=== PATIENT | female | born 1960 | race Caucasian/White ===

== ENCOUNTER → 2017-09-11 | Outpatient (CLI) | payer OTHER, BC ==
--- NOTE | 2017-09-12 10:05 | MM ---
Reason for exam: screening (asymptomatic). Last mammogram was performed 1 year and 10 months ago. History: Patient is postmenopausal and had first child at age 30. Family history of breast cancer in maternal grandmother and breast cancer in mother at age 55. 2 benign excisional biopsies of the right breast. Physical Findings: A clinical breast exam by your physician is recommended on an annual basis and results should be correlated with mammographic findings. MG 3D Screening Mammo W/Cad Bilateral CC and MLO view(s) were taken. Prior study comparison: November 02, 2015, bilateral MG screening mammo w CAD. September 23, 2014, bilateral MG screening mammo w CAD. The breast tissue is heterogeneously dense. This may lower the sensitivity of mammography. Finding: There is a 11 mm equal density (isodense), obscured oval mass in the upper outer quadrant of the left breast. ASSESSMENT: Incomplete: need additional imaging evaluation, BI-RAD 0 RECOMMENDATION: Ultrasound of the left breast. [facility] will attempt to contact patient to return for ultrasound.
== END | disposition home or self-care (01) ==
LOC: RADMAMWWP 16:45
PROVIDERS: ATTEND General Practice
DX: Z12.31 Encounter for screening mammogram for malignant neoplasm of breast (principal)
CPT/HCPCS: 77063; G0202

== ENCOUNTER → 2018-04-16 | Outpatient (CLI) | payer OTHER, BC ==
--- NOTE | 2018-04-17 09:25 | USB ---
Reason for exam: clinical finding. History: Patient is postmenopausal and had first child at age 30. Family history of breast cancer in maternal grandmother and breast cancer in mother at age 55. 2 benign excisional biopsies of the right breast. Physical Findings: Nurse did not find any significant physical abnormalities on exam. US Breast LT Left complete breast ultrasound includes all four quadrants, the retroareolar region and axilla. Finding demonstrates no cystic or solid lesion seen. Duct ectasia at the nipple. These results were verbally communicated with the patient and result sheet given to the patient on 04/16/18. ASSESSMENT: Negative, BI-RAD 1 RECOMMENDATION: Return to routine screening mammogram schedule for both breasts. Back on schedule.
== END | disposition home or self-care (01) ==
LOC: RADUSWWP 15:34
PROVIDERS: ATTEND Family Medicine
DX: R92.8 Other abnormal and inconclusive findings on diagnostic imaging of breast (principal)

== ENCOUNTER → 2019-05-26 | Outpatient (CLI) | payer OTHER, BC ==
--- NOTE | 2019-05-27 13:51 | MM ---
Reason for exam: screening (asymptomatic). Last mammogram was performed 1 year and 8 months ago. History: Patient is postmenopausal and had first child at age 30. Family history of breast cancer in maternal grandmother and breast cancer in mother at age 55. 2 benign excisional biopsies of the right breast. Physical Findings: A clinical breast exam by your physician is recommended on an annual basis and results should be correlated with mammographic findings. MG 3D Screening Mammo W/Cad Bilateral CC and MLO view(s) were taken. Prior study comparison: September 11, 2017, bilateral MG 3d screening mammo w/cad. November 02, 2015, bilateral MG screening mammo w CAD. The breast tissue is heterogeneously dense. This may lower the sensitivity of mammography. There are benign appearing round oval circumscribed left areolar masses waxing and waning in size over priors most characteristic of cysts. No suspicious abnormality. Post surgical change on the right. No significant changes when compared with prior studies. ASSESSMENT: Benign, BI-RAD 2 RECOMMENDATION: Routine screening mammogram of both breasts in 1 year.
== END | disposition home or self-care (01) ==
LOC: RADMAMWWP 16:30
PROVIDERS: ATTEND Family Medicine
DX: Z12.31 Encounter for screening mammogram for malignant neoplasm of breast (principal)
CPT/HCPCS: 77063; 77067

== ENCOUNTER → 2020-07-31 | Outpatient (CLI) | payer OTHER, BC ==
--- NOTE | 2020-08-01 13:30 | MM ---
Reason for exam: screening (asymptomatic). Last mammogram was performed 1 year and 2 months ago. History: Patient is postmenopausal and had first child at age 30. Family history of breast cancer in maternal grandmother and breast cancer in mother at age 55. 2 benign excisional biopsies of the right breast. Physical Findings: A clinical breast exam by your physician is recommended on an annual basis and results should be correlated with mammographic findings. MG 3D Screening Mammo W/Cad Bilateral CC and MLO view(s) were taken. Prior study comparison: May 26, 2019, bilateral MG 3d screening mammo w/cad. September 11, 2017, bilateral MG 3d screening mammo w/cad. The breast tissue is heterogeneously dense. This may lower the sensitivity of mammography. There is no discrete abnormality. ASSESSMENT: Negative, BI-RAD 1 RECOMMENDATION: Routine screening mammogram of both breasts in 1 year.
== END | disposition home or self-care (01) ==
LOC: RADMAMWWP 15:35
PROVIDERS: ATTEND General Practice
DX: Z12.31 Encounter for screening mammogram for malignant neoplasm of breast (principal)
CPT/HCPCS: 77063; 77067

== ENCOUNTER → 2021-09-14 | Outpatient (CLI) | payer BC ==
--- NOTE | 2021-09-18 13:33 | MM ---
Reason for exam: screening (asymptomatic). Last mammogram was performed 1 year and 1 month ago. History: Patient is postmenopausal and had first child at age 30. Family history of breast cancer in maternal grandmother and breast cancer in mother at age 55. 2 benign excisional biopsies of the right breast. Physical Findings: A clinical breast exam by your physician is recommended on an annual basis and results should be correlated with mammographic findings. MG 3D Screening Mammo W/Cad Bilateral CC and MLO view(s) were taken. Prior study comparison: July 31, 2020, bilateral MG 3d screening mammo w/cad. May 26, 2019, bilateral MG 3d screening mammo w/cad. The breast tissue is heterogeneously dense. This may lower the sensitivity of mammography. There is chronic nodularity in the left breast. No significant changes when compared with prior studies. ASSESSMENT: Benign, BI-RAD 2 RECOMMENDATION: Routine screening mammogram of both breasts in 1 year. Patient should continue monthly self breast exams. A negative report should not preclude additional follow up of suspicious palpable abnormalities.
== END | disposition home or self-care (01) ==
LOC: RADMAMWWP 13:02
PROVIDERS: ATTEND General Practice
DX: Z12.31 Encounter for screening mammogram for malignant neoplasm of breast (principal); Z80.3 Family history of malignant neoplasm of breast; Z78.0 Asymptomatic menopausal state
CPT/HCPCS: 77063; 77067

== ENCOUNTER → 2022-10-08 | Outpatient (CLI) | payer BC ==
--- NOTE | 2022-10-11 12:29 | MM ---
Reason for Exam: Screening (asymptomatic). Last mammogram was performed 1 year(s) and 1 month(s) ago. Patient History: Menarche at age 11. First Full-Term at age 30. Late child-bearing (after 30). Postmenopausal. Benign Excisional Biopsy on the right side. Benign Excisional Biopsy on the right side. Maternal grandmother had breast cancer. Mother had breast cancer, age 55. Risk Values: Tania 5 year model risk: 4.9%. NCI Lifetime model risk: 18.4%. Prior Study Comparison: 05/26/2019 Bilateral Screening Mammogram, [facility]. 07/31/2020 Bilateral Screening Mammogram, [facility]. 09/14/2021 Bilateral Screening Mammogram, [facility]. Tissue Density: The breast tissue is heterogeneously dense. This may lower the sensitivity of mammography. Findings: Analyzed By CAD. There is circumscribed round 5 mm mass in the anterior left breast subareolar region inferior medial aspect that is stable from most recent mammogram. No suspicious new group of microcalcifications or concerning new mass in either breast. Overall Assessment: Benign, BI-RAD 2 Management: Screening Mammogram of both breasts in 1 year. A clinical breast exam by your physician is recommended on an annual basis and results should be correlated with mammographic findings. Electronically signed and approved by: Dimitri Hirsch M.D.
== END | disposition home or self-care (01) ==
LOC: RADMAMWWP 14:33
PROVIDERS: ATTEND Family Medicine
DX: Z12.31 Encounter for screening mammogram for malignant neoplasm of breast (principal); Z78.0 Asymptomatic menopausal state; Z80.3 Family history of malignant neoplasm of breast; Z98.890 Other specified postprocedural states
CPT/HCPCS: 77063; 77067

== ENCOUNTER → 2023-11-20 | Outpatient (CLI) | payer BC ==
--- NOTE | 2023-11-21 19:10 | MM ---
Reason for Exam: Screening (asymptomatic). Last mammogram was performed 1 year(s) and 1 month(s) ago. Patient History: Menarche at age 11. First Full-Term at age 30. Late child-bearing (after 30). Postmenopausal. Benign Excisional Biopsy on the right side. Benign Excisional Biopsy on the right side. Maternal grandmother had breast cancer. Mother had breast cancer, age 55. Risk Values: Tania 5 year model risk: 5.0%. NCI Lifetime model risk: 17.8%. Prior Study Comparison: 07/31/2020 Bilateral Screening Mammogram, [facility]. 09/14/2021 Bilateral Screening Mammogram, [facility]. 10/08/2022 Bilateral MG 3D screening mammo w/cad, [facility]. Tissue Density: The breast tissue is heterogeneously dense. This may lower the sensitivity of mammography. Findings: Analyzed By CAD. Increasing nodularity anterior right lower inner quadrant for which further evaluation is recommended. Other areas of asymmetric density remain unchanged. There is no suspicious group of microcalcifications or new suspicious mass in either breast. Overall Assessment: Incomplete: need additional imaging evaluation, BI-RAD 0 Management: Special View Mammogram of the right breast. Diagnostic Breast Ultrasound of the right breast. . [facility] will attempt to contact patient to return for supplemental views and ultrasound if indicated. Patient should continue monthly self-breast exams. A clinical breast exam by your physician is recommended on an annual basis. This exam should not preclude additional follow-up of suspicious palpable abnormalities. Note on Tania scores and lifetime risk: 1. A Tania score greater than 3% is considered moderate risk. If this is the case, consider specialist referral to assess eligibility for a risk reducing agent. 2. If overall lifetime risk for the development of breast cancer is 20% or higher, the patient may qualify for future screening with alternating mammogram and breast MRI. Electronically signed and approved by: Wesley Hernandez M.D. Radiologist
== END | disposition home or self-care (01) ==
LOC: RADMAMWWP 10:54
PROVIDERS: ATTEND Family Medicine
DX: Z12.31 Encounter for screening mammogram for malignant neoplasm of breast (principal); Z80.3 Family history of malignant neoplasm of breast; Z78.0 Asymptomatic menopausal state
CPT/HCPCS: 77063; 77067

== ENCOUNTER → 2023-11-28 | Outpatient (CLI) | payer BC ==
--- NOTE | 2023-11-28 13:14 | MM ---
Reason for Exam: Additional evaluation requested from abnormal screening. Last screening mammogram was performed less than 1 month ago. Patient History: Menarche at age 11. First Full-Term at age 30. Late child-bearing (after 30). Postmenopausal. Benign Excisional Biopsy on the right side. Benign Excisional Biopsy on the right side. Maternal grandmother had breast cancer. Mother had breast cancer, age 55. Risk Values: Tania 5 year model risk: 5.0%. NCI Lifetime model risk: 17.8%. Prior Study Comparison: 07/31/2020 Bilateral Screening Mammogram, [facility]. 09/14/2021 Bilateral Screening Mammogram, [facility]. 10/08/2022 Bilateral MG 3D screening mammo w/cad, [facility]. 11/20/2023 Bilateral MG 3D screening mammo w/cad, [facility]. Tissue Density: Right: The breast tissue is heterogeneously dense. This may lower the sensitivity of mammography. Findings: Analyzed By CAD. 7 mm nodule right 5:00 position approximately 2 cm. Ultrasound is recommended. Overall Assessment: Incomplete: need additional imaging evaluation, BI-RAD 0 Management: Diagnostic Breast Ultrasound of the right breast. . Results were given to the patient verbally at the time of exam. Patient should continue monthly self-breast exams. A clinical breast exam by your physician is recommended on an annual basis. This exam should not preclude additional follow-up of suspicious palpable abnormalities. Note on Tania scores and lifetime risk: 1. A Tania score greater than 3% is considered moderate risk. If this is the case, consider specialist referral to assess eligibility for a risk reducing agent. 2. If overall lifetime risk for the development of breast cancer is 20% or higher, the patient may qualify for future screening with alternating mammogram and breast MRI. Electronically signed and approved by: Mateo Orr M.D. Radiologis
--- NOTE | 2023-11-28 13:36 | USB ---
Reason for Exam: Additional evaluation requested from abnormal screening. Patient History: Menarche at age 11. First Full-Term at age 30. Late child-bearing (after 30). Postmenopausal. Benign Excisional Biopsy on the right side. Benign Excisional Biopsy on the right side. Maternal grandmother had breast cancer. Mother had breast cancer, age 55. Risk Values: Tania 5 year model risk: 5.0%. NCI Lifetime model risk: 17.8%. Technique: Method: Targeted. Prior Study Comparison: 09/14/2021 Bilateral Screening Mammogram, [facility]. 10/08/2022 Bilateral MG 3D screening mammo w/cad, [facility]. 11/20/2023 Bilateral MG 3D screening mammo w/cad, [facility]. Findings: The lower section of the breast of the right breast, the axilla of the right breast and the retroareolar of the right breast were scanned. Solid mass noted at the right 5:00 position 2 cm from the nipple measuring 7 x 6 mm. Tissue diagnosis recommended. There are a few mildly prominent ducts noted. No additional lesions evident.. Overall Assessment: Suspicious, BI-RAD 4 Management: Ultrasound Core Biopsy of the right breast. A clinical breast exam by your physician is recommended on an annual basis and results should be correlated with mammographic findings. This exam should not preclude additional follow-up of suspicious palpable abnormalities. Results were given to the patient verbally at the time of exam. Electronically signed and approved by: Mateo Orr M.D. Radiologis
== END | disposition home or self-care (01) ==
LOC: RADMAMWWP 12:53
PROVIDERS: ATTEND Family Medicine
DX: R92.331 Mammographic heterogeneous density, right breast (principal); Z80.3 Family history of malignant neoplasm of breast
CPT/HCPCS: 77061; 77065

== ENCOUNTER → 2023-12-22 | Day surgery (SDC) | payer BC | LOC: RADUSWWP 12:44 | PROVIDERS: ATTEND Family Medicine | DX: D24.1 Benign neoplasm of right breast (principal) | CPT/HCPCS: 77065; 19083; A4648; 88305; 88341; 88342 ==

== ENCOUNTER → 2024-02-05 | Outpatient (CLI) | payer BC ==
--- NOTE | 2024-02-05 15:25 | P.GSCN ---
History of Present Illness Consult date: 02/05/24 Reason for Consult: atypical intraductal papilloma right breast Requesting physician: Nhan Lane History of present illness: Wilma is a 63 year old female seen in consultation for Dr. Lane regarding a right breast biopsy of an atypical intraductal papilloma. She had a bilateral mammogram on 11-20-23 which led to a right breat ultrasound on 11-28-23. This led to a right breast ultrasound guided core biopsy on 12-22-23. No lesions of concern were noted in the left breast. The patient does not feel any lumps masses or nodules of concern in either breast. She tolerated the breast biopsy without difficulty. She is not complaining of any nipple discharge or skin changes. She has not had any recent trauma or infection in the breast. She has had right breast biopsies in the remote past which were benign. Caffeine: 2 cups/day Nicotine: Negative Chocolate: Occasional BCP: used for 5 years hormones: none Family History: mother: breast cancer father: cancer in neck Hormonal History: menarche: 11 , breast fed: yes, age at first : 30 menopause: 50 Surgical HIstory: 2 C sections right breast biopsy ovarian cyst removed Medical History: high cholesterol Social History: nicotine: none alcohol: none drugs: none Review of Systems - Constitutional Denies fever, Denies weight loss - EENT Eyes: denies blurred vision Ears: deny: decreased hearing, tinnitus Ears, nose, mouth and throat: Denies dysphagia - Breasts bilateral: as per HPI - Cardiovascular Denies chest pain, Denies shortness of breath - Respiratory Denies cough, Denies 7 - Gastrointestinal Reports as per HPI - Genitourinary Genitourinary: Denies dysuria, Denies hematuria Menstruation: Reports postmenopausal - Musculoskeletal Reports as per HPI - Integumentary Denies rash, Denies unusual bruising - Neurological Denies headaches, Denies syncope - Psychiatric Reports as per HPI - Endocrine Reports as per HPI - Hematologic/Lymphatic Denies easy bleeding, Denies easy bruising - Allergic/Immunologic Reports as per HPI Past Medical History Past Medical History: Hyperlipidemia History of Any Multi-Drug Resistant Organisms: None Reported Past Surgical History: Section Additional Past Surgical History / Comment(s): X2, PREVIOUS BREAST BX Past Anesthesia/Blood Transfusion Reactions: No Reported Reaction - Sexual Orientation/Gender Identity What was your sex assigned at ?: Female Preferred Pronoun: She/Her/Hers Past Psychological History: No Psychological Hx Reported Smoking Status: Former smoker Past Alcohol Use History: None Reported Past Drug Use History: None Reported - Past Family History Mother Family Medical History: Cancer Additional Family Medical History / Comment(s): PT STATES MOTHER DUE TO BREAST CA Father Additional Family Medical History / Comment(s): PT STATES FATHER FROM HEART DISEASE Medications and Allergies Home Medications Medication Instructions Recorded Confirmed Type Atorvastatin [Lipitor] 10 mg PO DAILY 12/01/23 12/01/23 History Surgical - Exam - General no distress - Eyes normal ocular movement - ENT no hearing loss - Neck trachea midline - Respiratory normal respiratory effort, clear to auscultation - Cardiovascular Rhythm: regular Heart Sounds: normal: S1, S2 - Abdomen Abdomen: soft, non tender, no guarding, no rigid, no rebound - Integumentary normal turgor - Neurologic no disoriented, no combative - Musculoskeletal normal gait - Psychiatric oriented to time, oriented to person, oriented to place, speech is normal, memory intact Breast Exam: BRA: 34C Inspection: Bilateral grade 2 ptosis Palpation: Right breast: Multi positional exam fibrocystic changes no dominant masses or nodules of concern, biopsy site clean and dry Right axilla: No adenopathy of concern Left breast: Multi positional exam fibrocystic changes no dominant masses or nodules of concern Left axilla: No adenopathy of concern Results Mammogram and ultrasound personally reviewed with Dr. Sainz Assessment and Plan Assessment: Impression: Atypical intraductal papilloma right breast Fibrocystic breast changes Plan: Needle localization excisional lumpectomy atypical intraductal papilloma right breast, possible oncoplastic tissue transfer The area of the clip appears to have migrated slightly and after review with radiology it was recommended that ultrasound localization be performed rather than localization of the clip Risk and benefits of the procedure discussed with the patient. Risk include but are not limited to bleeding, infection, reaction to the anesthetic. If the needle were to slip it is possible that the lesion of concern would not be adequately removed and further tissue acquisition may be necessary. She understands and wishes to proceed. CC: DR. Lane
[2024-02-05 15:43] VITALS: BP 156/89; PULSE 69; RESP 17; TEMP 98
== END ==
LOC: WWCWWP 14:46
PROVIDERS: ATTEND Surgery
DX: R92.8 Other abnormal and inconclusive findings on diagnostic imaging of breast (principal); N60.11 Diffuse cystic mastopathy of right breast; N60.12 Diffuse cystic mastopathy of left breast; D24.1 Benign neoplasm of right breast; Z80.3 Family history of malignant neoplasm of breast; Z87.891 Personal history of nicotine dependence

== ENCOUNTER → 2024-03-11 | Outpatient (CLI) | payer BC ==
--- NOTE | 2024-03-11 14:43 | P.BCPN ---
Subjective Progress Note Date: 03/11/24 Principal diagnosis: atypical intraductal papilloma 03-11-24 Reason for Consult: atypical intraductal papilloma right breast Requesting physician: Nhan Lane History of present illness: Wilma is a 63 year old female seen in consultation for Dr. Nhan Lane regarding a right breast biopsy of an atypical intraductal papilloma. She had a bilateral mammogram on 11-20-23 which led to a right breast ultrasound on 11-28-23. This led to a right breast ultrasound guided core biopsy on 12-22-23. No lesions of concern were noted in the left breast. The patient did not feel any lumps masses or nodules of concern in either breast. She tolerated the breast biopsy without difficulty. She was not complaining of any nipple discharge or skin changes. She had not had any recent trauma or infection in the breast. She has had right breast biopsies in the remote past which were benign. Caffeine: 2 cups/day Nicotine: Negative Chocolate: Occasional BCP: used for 5 years hormones: none Family History: mother: breast cancer father: cancer in neck Hormonal History: menarche: 11 , breast fed: yes, age at first : 30 menopause: 50 Surgical HIstory: 2 C sections right breast biopsy ovarian cyst removed Medical History: high cholesterol Social History: nicotine: none alcohol: none drugs: none Review of Systems - Constitutional Denies fever, Denies weight loss - EENT Eyes: denies blurred vision Ears: deny: decreased hearing, tinnitus Ears, nose, mouth and throat: Denies dysphagia - Breasts bilateral: as per HPI - Cardiovascular Denies chest pain, Denies shortness of breath - Respiratory Denies cough - Gastrointestinal Reports as per HPI - Genitourinary Genitourinary: Denies dysuria, Denies hematuria Menstruation: Reports postmenopausal - Musculoskeletal Reports as per HPI - Integumentary Denies rash, Denies unusual bruising - Neurological Denies headaches, Denies syncope - Psychiatric Reports as per HPI - Endocrine Reports as per HPI - Hematologic/Lymphatic Denies easy bleeding, Denies easy bruising - Allergic/Immunologic Reports as per HPI Past Medical History Past Medical History: Hyperlipidemia History of Any Multi-Drug Resistant Organisms: None Reported Past Surgical History: Section Additional Past Surgical History / Comment(s): X2, PREVIOUS BREAST BX Past Anesthesia/Blood Transfusion Reactions: No Reported Reaction - Sexual Orientation/Gender Identity What was your sex assigned at ?: Female Preferred Pronoun: She/Her/Hers Past Psychological History: No Psychological Hx Reported Smoking Status: Former smoker Past Alcohol Use History: None Reported Past Drug Use History: None Reported - Past Family History Mother Family Medical History: Cancer Additional Family Medical History / Comment(s): PT STATES MOTHER DUE TO BREAST CA Father Additional Family Medical History / Comment(s): PT STATES FATHER FROM HEART DISEASE Medications and Allergies Home Medications Medication Instructions Recorded Confirmed Type Atorvastatin [Lipitor] 10 mg PO DAILY 12/01/23 12/01/23 History Objective - Vital Signs Vital Signs: Vital Signs Temp 98.3 F 03/11/24 14:24 Pulse 78 03/11/24 14:24 Resp 16 03/11/24 14:24 BP 158/96 03/11/24 14:24 Pulse Ox 98 03/11/24 14:24 FiO2 Intake & Output 03/10/24 03/11/24 03/11/24 18:59 06:59 18:59 Weight 50.802 kg - Constitutional General appearance: Present: cooperative - EENT Eyes: Present: EOMI ENT: Present: hearing grossly normal - Neck Neck: Present: normal ROM - Respiratory Respiratory: bilateral: CTA - Cardiovascular Rhythm: regular Heart sounds: normal: S1, S2 - Integumentary Integumentary: Present: normal turgor - Musculoskeletal Musculoskeletal: Present: gait normal - Psychiatric Psychiatric: Present: A&O x's 3, appropriate affect, intact judgment & insight - Additional findings Additional findings: Breast Exam: BRA: 34C Inspection: Bilateral grade 2 ptosis Palpation: Right breast: Multi positional exam fibrocystic changes no dominant masses or nodules of concern Right axilla: No adenopathy of concern Left breast: Multi positional exam fibrocystic changes no dominant masses or nodules of concern Left axilla: No adenopathy of concern Assessment and Plan Plan: Impression: Atypical intraductal papilloma right breast Fibrocystic breast changes Plan: Needle localization excisional lumpectomy atypical intraductal papilloma right breast, possible oncoplastic tissue transfer The area of the clip appears to have migrated slightly and after review with radiology it was recommended that ultrasound localization be performed rather than localization of the clip Risk and benefits of the procedure discussed with the patient. Risk include but are not limited to bleeding, infection, reaction to the anesthetic. If the needle were to slip it is possible that the lesion of concern would not be adequately removed and further tissue acquisition may be necessary. She understands and wishes to proceed. CC: DR. Nhan Lane Prep Education Provided - Preoperative Education Given Pre-Op Kit Given Date: 03/11/24 - Functional Assessment Performed?: Yes (arm abduction test passed) - Smoking Cessation Education Provided?: No (nonsmoker)
[2024-03-11 15:06] VITALS: BP 158/96; PULSE 78; RESP 16; TEMP 98.3
== END ==
LOC: WWCWWP 14:14
PROVIDERS: ATTEND Surgery
DX: D24.1 Benign neoplasm of right breast (principal); N60.11 Diffuse cystic mastopathy of right breast

== ENCOUNTER 2024-03-16 08:15 | Day surgery (SDC) | payer BC ==
[~2024-03-16 08:15] MED LIST: HYDROmorphone 0.5 MG/0.5 ML SYRINGE IVP PRN; LIDOCAINE 1% (10MG/ML) FOR IV START INTRADERMA PRN; MIDAZOLAM 2 MG/2 ML VIAL IV PRN
[2024-03-16] MEDS: LACTATED RINGERS 1,000 ML IV SCH (09:10)
[2024-03-16] MEDS ORDERED: ALPRAZolam 0.25 MG TAB ONE (09:10)
[2024-03-16] MEDS: ACETAMINOPHEN TAB 500 MG TAB PO PRN (09:12)
[2024-03-16] MEDS: ALPRAZolam 0.25 MG TAB PO ONE (09:12)
[2024-03-16] MEDS: ONDANSETRON 4 MG/2 ML VIAL IVP ONE (09:12)
[2024-03-16] MEDS: DEXAMETHASONE SOD PHOSPHATE 4 MG/ML 1 ML VIAL IV ONE (09:12)
[2024-03-16 09:43] VITALS: RESP 16
[2024-03-16] MEDS: LIDOCAINE 1% INJ 10MG/ML (20 ML MDV) SQ ONE ×2 (10:03→12:37)
[2024-03-16] MEDS: HEPARIN SODIUM,PORCINE 5,000 UNIT/ML 1 ML VIAL SQ PRN (10:33)
[2024-03-16] MEDS ORDERED: PHENYLEPHRINE 10 MG/ML VIAL ONE (12:04)
[2024-03-16] MEDS ORDERED: LIDOCAINE 1% INJ 10MG/ML (20 ML MDV) ONE (12:04)
[2024-03-16] MEDS ORDERED: fentaNYL (PF) 50 MCG/ML 2 ML AMP ONE (12:04)
[2024-03-16] MEDS ORDERED: MIDAZOLAM 2 MG/2 ML VIAL ONE (12:04)
[2024-03-16] MEDS ORDERED: PROPOFOL 10 MG/ML 20 ML VIAL IV ONE (12:04)
[2024-03-16] MEDS: LACTATED RINGERS 1,000 ML IV ONE (13:06)
--- NOTE | 2024-03-16 13:11 | P.BCAON ---
Date of Procedure: 03/16/24 Preoperative Diagnosis: Intraductal papilloma with atypia Postoperative Diagnosis: Same Procedure(s) Performed: Right breast needle localization lumpectomy, oncoplastic tissue transfer 15 cm Anesthesia: DIXONA Surgeon: Noemi Almonte IV fluids (ml): 600 Pathology: other (Breast tissue) Condition: stable Disposition: same day Indications for Procedure: Intraductal papilloma with atypia Operative Findings: Fibrofatty breast tissue Description of Procedure: The patient was seen in the radiology department for needle localization of the area of concern was performed. The patient was then brought to the operative suite. Following induction of anesthesia the right breast was prepped and draped in a sterile fashion. An infra areolar incision was made and carried down to the area of the shaft of the needle. Surrounding tissue was excised. The specimen was approximately 4 x 2 cm in size. The specimen was painted for orientation. Radiograph revealed that the area of concern and clip were removed. Following this a superior pillar was formed which was 3 x 1 cm. An inferior pillar was formed which was 4 x 1 cm. The wound was well irrigated. After assuring that hemostasis was attained titanium clips were placed. Surgicel in powder form was placed. The superior and inferior pillars were brought together using 3-0 Vicryl suture. Total oncoplastic tissue transfer 15 cm. Following this the subcutaneous tissue was closed using 3-0 Vicryl suture. This was followed by closure of the skin with 4-0 Monocryl. The patient tolerated the procedure in stable condition. All instrument and sponge counts were correct at the end of the case. 10 cc of 1% lidocaine were used to anesthetize the incision. Surgical glue was placed on the incision.
[2024-03-16 14:26] VITALS: TEMP 97
[2024-03-16 15:23] VITALS: BP 147/74; PULSE 55
== END 2024-03-16 15:16 | disposition home or self-care (01) ==
LOC: OR 08:15
PROVIDERS: ATTEND Surgery
DX: N60.21 Fibroadenosis of right breast (principal); E78.5 Hyperlipidemia, unspecified; Z98.891 History of uterine scar from previous surgery; Z87.891 Personal history of nicotine dependence; Z79.899 Other long term (current) drug therapy
CPT/HCPCS: 88307; 77065; 76098; 19285; 14301; C1819; J2250; J1644; J1100; J0690; J2405; J2001; J3010; J2704; J2371

== ENCOUNTER → 2024-03-19 | Outpatient (CLI) | payer BC ==
--- NOTE | 2024-03-19 10:52 | P.BCPO ---
Progress Note - Text Progress Note Date: 03/19/24 Wilma is status post resection of intraductal papilloma right breast. Pathology did reveal intraductal papilloma with atypia. Several of the margins were positive. The patient tolerated the procedure without difficulty. We have discussed chemoprophylaxis secondary to the atypia. At this time the patient has declined. Examination: Incision: Clean and dry mild ecchymosis at incision site Impression: Patient doing well postoperatively Plan: Close surveillance/ + margins Patient will follow-up in 2 weeks Patient will follow-up for right breast mammogram in 6 months with examination Patient declined appointment with medical oncology for possible chemoprophylaxis CC: Dr. Nhan Lane
[2024-03-19 11:02] VITALS: BP 181/90; PULSE 70; RESP 17; TEMP 98.1
== END ==
LOC: WWCWWP 09:43
PROVIDERS: ATTEND Surgery
DX: D24.1 Benign neoplasm of right breast (principal); Z98.890 Other specified postprocedural states

== ENCOUNTER → 2024-04-08 | Outpatient (CLI) | payer BC ==
--- NOTE | 2024-04-08 10:13 | P.CON ---
Consult Note - . Consult date: 04/08/24 Assessment/Plan:: 03/19/24 Wilma is status post resection of intraductal papilloma right breast. Pathology did reveal intraductal papilloma with atypia. Several of the margins were positive. The patient tolerated the procedure without difficulty. We have discussed chemoprophylaxis secondary to the atypia. At this time the patient has declined. Examination: Incision: Clean and dry mild ecchymosis at incision site resolved Impression: Patient doing well postoperatively Plan: Close surveillance/ + margins Patient will follow-up in 6 months Patient will follow-up for right breast mammogram in 6 months with examination Patient declined appointment with medical oncology for possible chemoprophylaxis CC: Dr. Nhan Lane Additional CC's: Nhan Lane
== END ==
LOC: WWCWWP 09:13
PROVIDERS: ATTEND Surgery
DX: D24.1 Benign neoplasm of right breast (principal)

== ENCOUNTER → 2024-09-17 | Outpatient (CLI) | payer BC ==
[2024-09-17 14:23] VITALS: BP 147/87; PULSE 59; RESP 17; TEMP 97.9
== END ==
LOC: WWCWWP 13:14
PROVIDERS: ATTEND Surgery
DX: R92.8 Other abnormal and inconclusive findings on diagnostic imaging of breast (principal)

== ENCOUNTER → 2024-09-17 | Outpatient (CLI) | payer BC ==
--- NOTE | 2024-09-17 13:46 | MM ---
Reason for Exam: Follow-up at short interval from prior study. Last screening mammogram was performed 10 month(s) ago. Patient History: Menarche at age 11. First Full-Term at age 30. Late child-bearing (after 30). Postmenopausal. Previous Hyperplasia w/o Atypia at age 63. 03/16/2024, Lumpectomy on the Right side. 03/16/2024, Benign US breast localization RT on the right side. 12/22/2023, High risk US biopsy breast VAD RT on the right side. Benign Excisional Biopsy on the right side. Benign Excisional Biopsy on the right side. Maternal grandmother had breast cancer. Mother had breast cancer, age 55. Risk Values: Tania 5 year model risk: 5.1%. NCI Lifetime model risk: 17.2%. Prior Study Comparison: 11/28/2023 Right MG 3D work up w/cad RT, [facility]. 12/22/2023 Right MG diagnostic mammo RT wo CAD, [facility]. 03/16/2024 Right MG diagnostic mammo RT wo CAD, [facility]. Tissue Density: Right: The breasts are heterogeneously dense, which may obscure small masses. Findings: Analyzed By CAD. Status postoperative lumpectomy changes right breast. No evidence for recurrent mass or nodule. No suspicious microcalcifications. Overall Assessment: Benign, BI-RAD 2 Management: Diagnostic Mammogram of both breasts in 3 months. . Results were given to the patient verbally at the time of exam. Patient should continue monthly self-breast exams. A clinical breast exam by your physician is recommended on an annual basis. This exam should not preclude additional follow-up of suspicious palpable abnormalities. Note on Tania scores and lifetime risk: 1. A Tania score greater than 3% is considered moderate risk. If this is the case, consider specialist referral to assess eligibility for a risk reducing agent. 2. If overall lifetime risk for the development of breast cancer is 20% or higher, the patient may qualify for future screening with alternating mammogram and breast MRI. [facility], , 09/17/2024 1:41 PM. Electronically signed and approved by: Mateo Orr M.D. Radiologis
--- NOTE | 2024-09-17 14:24 | P.PN ---
Subjective Progress Note Date: 09/17/24 atypical intraductal papilloma 09-17-24 Reason for Consult: atypical intraductal papilloma right breast Requesting physician: Nhan Lane History of present illness: Wimla is a 64 year old female seen in consultation for Dr.Thomas Lane regarding a right breast biopsy of an atypical intraductal papilloma. She had a bilateral mammogram on 11-20-23 which led to a right breast ultrasound on 11-28-23. This led to a right breast ultrasound guided core biopsy on 12-22-23. No lesions of concern were noted in the left breast. The patient did not feel any lumps masses or nodules of concern in either breast. She tolerated the breast biopsy without difficulty. She was not complaining of any nipple discharge or skin changes. She had not had any recent trauma or infection in the breast. She has had right breast biopsies in the remote past which were benign. She is status post needle loc and excision of the area on 03-14-24; this was an atypical intraductal papilloma right breast mammogram on 09-17-24 BIRAD 2, personally interpreted She is not complaining of any new lumps masses or nodules of concern in either breast. Tania Risk 5.1 LifeTime Risk: 17.2 Discussed chemoprophylaxis and at this time patient would prefer to be followed conservatively Caffeine: 2 cups/day Nicotine: Negative Chocolate: Occasional BCP: used for 5 years hormones: none Family History: mother: breast cancer father: cancer in neck Hormonal History: menarche: 11 , breast fed: yes, age at first : 30 menopause: 50 Surgical HIstory: 2 C sections right breast biopsy ovarian cyst removed Medical History: high cholesterol Social History: nicotine: none alcohol: none drugs: none Review of Systems - Constitutional Denies fever, Denies weight loss - EENT Eyes: denies blurred vision Ears: deny: decreased hearing, tinnitus Ears, nose, mouth and throat: Denies dysphagia - Breasts bilateral: as per HPI - Cardiovascular Denies chest pain, Denies shortness of breath - Respiratory Denies cough - Gastrointestinal Reports as per HPI - Genitourinary Genitourinary: Denies dysuria, Denies hematuria Menstruation: Reports postmenopausal - Musculoskeletal Reports as per HPI - Integumentary Denies rash, Denies unusual bruising - Neurological Denies headaches, Denies syncope - Psychiatric Reports as per HPI - Endocrine Reports as per HPI - Hematologic/Lymphatic Denies easy bleeding, Denies easy bruising - Allergic/Immunologic Reports as per HPI Past Medical History Past Medical History: Hyperlipidemia History of Any Multi-Drug Resistant Organisms: None Reported Past Surgical History: Section Additional Past Surgical History / Comment(s): X2, PREVIOUS BREAST BX Past Anesthesia/Blood Transfusion Reactions: No Reported Reaction - Sexual Orientation/Gender Identity What was your sex assigned at ?: Female Preferred Pronoun: She/Her/Hers Past Psychological History: No Psychological Hx Reported Smoking Status: Former smoker Past Alcohol Use History: None Reported Past Drug Use History: None Reported - Past Family History Mother Family Medical History: Cancer Additional Family Medical History / Comment(s): PT STATES MOTHER DUE TO BREAST CA Father Additional Family Medical History / Comment(s): PT STATES FATHER FROM HEART DISEASE Medications and Allergies Home Medications Medication Instructions Recorded Confirmed Type Atorvastatin [Lipitor] 10 mg PO DAILY 12/01/23 12/01/23 History Objective - Constitutional General appearance: Present: cooperative - EENT Eyes: Present: EOMI ENT: Present: hearing grossly normal - Neck Neck: Present: normal ROM - Respiratory Respiratory: bilateral: CTA - Cardiovascular Rhythm: regular Heart sounds: normal: S1, S2 - Integumentary Integumentary: Present: normal turgor - Musculoskeletal Musculoskeletal: Present: gait normal - Psychiatric Psychiatric: Present: A&O x's 3, appropriate affect, intact judgment & insight - Additional findings Additional findings: Breast Exam: BRA: 34C Inspection: Bilateral grade 2 ptosis Palpation: Right breast: Multi positional exam fibrocystic changes no dominant masses or nodules of concern, well healed scar from biopsy Right axilla: No adenopathy of concern Left breast: Multi positional exam fibrocystic changes no dominant masses or nodules of concern Left axilla: No adenopathy of concern Assessment and Plan Assessment: Impression: Atypical intraductal papilloma right breast Fibrocystic breast changes mammogram right breast 09-17-24 BIRAD 2 Plan: bilateral mammogram in 6 months February 2025 with appointment Discussed chemo Prophylaxis and at this time patient has declined CC: DR. Nhan Lane
== END | disposition home or self-care (01) ==
LOC: RADMAMWWP 13:10
PROVIDERS: ATTEND Surgery
DX: R92.8 Other abnormal and inconclusive findings on diagnostic imaging of breast (principal); R92.333 Mammographic heterogeneous density, bilateral breasts; E78.00 Pure hypercholesterolemia, unspecified; N60.11 Diffuse cystic mastopathy of right breast; Z78.0 Asymptomatic menopausal state; Z80.3 Family history of malignant neoplasm of breast; Z82.49 Family history of ischemic heart disease and other diseases of the circulatory system
CPT/HCPCS: 77061; 77065

== ENCOUNTER → 2025-03-18 | Outpatient (CLI) | payer BC ==
--- NOTE | 2025-03-18 10:05 | MM ---
Reason for Exam: Follow-up at short interval from prior study. Last mammogram was performed 1 year(s) and 4 month(s) ago. Patient History: Menarche at age 11. First Full-Term at age 30. Late child-bearing (after 30). Postmenopausal. Previous Hyperplasia w/o Atypia at age 63. 03/16/2024, Lumpectomy on the Right side. 03/16/2024, Benign US breast localization RT on the right side. 12/22/2023, High risk US biopsy breast VAD RT on the right side. Benign Excisional Biopsy on the right side. Benign Excisional Biopsy on the right side. Maternal grandmother had breast cancer. Mother had breast cancer, age 55. Risk Values: Tania 5 year model risk: 5.1%. NCI Lifetime model risk: 17.2%. Prior Study Comparison: 08/18/1995 Screening Mammogram, Unknown. 10/01/2012 Bilateral Screening Mammogram, [facility]. 09/23/2014 Bilateral Screening Mammogram, [facility]. 11/02/2015 Bilateral Screening Mammogram, [facility]. 09/11/2017 Bilateral Screening Mammogram, [facility]. 04/16/2018 Left Diagnostic Ultrasound, [facility]. 05/26/2019 Bilateral Screening Mammogram, [facility]. 07/31/2020 Bilateral Screening Mammogram, [facility]. 09/14/2021 Bilateral Screening Mammogram, [facility]. 10/08/2022 Bilateral MG 3D screening mammo w/cad, [facility]. 11/20/2023 Bilateral MG 3D screening mammo w/cad, [facility]. 11/28/2023 Right MG 3D work up w/cad RT, [facility]. 11/28/2023 Right US breast workup limited RT, [facility]. 12/22/2023 Right MG diagnostic mammo RT wo CAD, [facility]. 03/16/2024 Right MG diagnostic mammo RT wo CAD, [facility]. 09/17/2024 Right MG 3D diag mammo w/cad RT, [facility]. Tissue Density: The breasts are heterogeneously dense, which may obscure small masses. Findings: Analyzed By CAD. Right breast surgical clips. Focal asymmetry/mass left breast 2.3 centers or nipple posterior nipple line on MLO view lateral and cc view measuring 9 mm. This does not compress out on spot compression imaging. Overall Assessment: Incomplete: need additional imaging evaluation, BI-RAD 0 Management: Diagnostic Breast Ultrasound of the left breast. Results were given to the patient verbally at the time of exam. Patient should continue monthly self-breast exams. A clinical breast exam by your physician is recommended on an annual basis. This exam should not preclude additional follow-up of suspicious palpable abnormalities. Note on Tania scores and lifetime risk: 1. A Tania score greater than 3% is considered moderate risk. If this is the case, consider specialist referral to assess eligibility for a risk reducing agent. 2. If overall lifetime risk for the development of breast cancer is 20% or higher, the patient may qualify for future screening with alternating mammogram and breast MRI. [facility], , 03/18/2025 10:02 AM. Electronically signed and approved by: Edward Roth DO
--- NOTE | 2025-03-18 10:52 | USB ---
Reason for Exam: Additional evaluation requested from abnormal screening. Patient History: Menarche at age 11. First Full-Term at age 30. Late child-bearing (after 30). Postmenopausal. Previous Hyperplasia w/o Atypia at age 63. 03/16/2024, Lumpectomy on the Right side. 03/16/2024, Benign US breast localization RT on the right side. 12/22/2023, High risk US biopsy breast VAD RT on the right side. Benign Excisional Biopsy on the right side. Benign Excisional Biopsy on the right side. Maternal grandmother had breast cancer. Mother had breast cancer, age 55. Risk Values: Tania 5 year model risk: 5.1%. NCI Lifetime model risk: 17.2%. Technique: Method: Targeted. Prior Study Comparison: 12/22/2023 Right MG diagnostic mammo RT wo CAD, [facility]. 03/16/2024 Right MG diagnostic mammo RT wo CAD, [facility]. 09/17/2024 Right MG 3D diag mammo w/cad RT, [facility]. Findings: The lower outer quadrant of the left breast, the axilla of the left breast and the retroareolar of the left breast were scanned. Technique utilized:US breast workup limited LT Image; Ultrasound imaging of: All 4 quadrants, the retroareolar region and axilla. There is a hypoechoic mass in the area of concern measuring up to 10 x 7 x 5 mm image 11 of 16. Findings concerning for intraductal mass versus other mass. Overall Assessment: Suspicious, BI-RAD 4 Management: Ultrasound Core Biopsy of the left breast. A clinical breast exam by your physician is recommended on an annual basis and results should be correlated with mammographic findings. This exam should not preclude additional follow-up of suspicious palpable abnormalities. Results were given to the patient verbally at the time of exam. [facility], , 03/18/2025 10:49 AM. Electronically signed and approved by: Edward Roth DO
== END | disposition home or self-care (01) ==
LOC: RADMAMWWP 09:31
PROVIDERS: ATTEND Surgery
DX: Z85.3 Personal history of malignant neoplasm of breast (principal); R92.333 Mammographic heterogeneous density, bilateral breasts; Z78.0 Asymptomatic menopausal state; Z80.3 Family history of malignant neoplasm of breast
CPT/HCPCS: 77062; 77066

== ENCOUNTER → 2025-03-28 | Day surgery (SDC) | payer BC ==
--- NOTE | 2025-04-04 11:08 | MM ---
Reason for Exam: Post Procedure Mammogram. Last screening mammogram was performed less than 1 month ago. Patient History: Menarche at age 11. First Full-Term at age 30. Late child-bearing (after 30). Postmenopausal. Previous Hyperplasia w/o Atypia at age 63. 03/16/2024, Lumpectomy on the Right side. 03/16/2024, Benign US breast localization RT on the right side. 12/22/2023, High risk US biopsy breast VAD RT on the right side. Benign Excisional Biopsy on the right side. Benign Excisional Biopsy on the right side. Maternal grandmother had breast cancer. Mother had breast cancer, age 55. Risk Values: Tania 5 year model risk: 5.1%. NCI Lifetime model risk: 17.2%. Prior Study Comparison: 12/22/2023 Right MG diagnostic mammo RT wo CAD, [facility]. 03/16/2024 Right MG diagnostic mammo RT wo CAD, [facility]. 09/17/2024 Right MG 3D diag mammo w/cad RT, [facility]. 03/18/2025 Left US breast workup limited LT, [facility]. 03/18/2025 Bilateral MG 3D diag mammo w/cad [facility], [facility]. Tissue Density: Left: The breasts are heterogeneously dense, which may obscure small masses. Pathology Description: Location: 3 o'clock, retroareolar. Marker Left Behind. Needle Type: Mammotome Cores: 4 Skin Nicks: 1 Gauge: 13 The procedure of ultrasound guided core biopsy was explained to the patient. Benefits, alternatives, and risks were discussed. An informed consent was then obtained. The patient was placed in supine positioning for imaging and for the procedure. The overlying skin was prepped and draped in usual sterile fashion. Lidocaine buffered with bicarbonate was used as anesthetic into the skin and subcutaneous tissue up to area of concern in the left breast. A nova was made with surgical scalpel. Under ultrasound guidance, a 12-gauge vacuum assisted biopsy gun device was used to obtain 4 core samples. Following this, a biopsy clip was left in lesion. The patient tolerated the procedure well without any immediate complication. The patient was kept in the radiology department for short stay after the procedure and then discharged home in stable condition. Postprocedure mammogram: The patient was transferred to mammography for physician ordered post procedure mammogram for clip placement verification. Post procedure mammogram demonstrates appropriate placement of clip possibly slightly anteriorly displaced up to 1 cm on the LCC view. Impression: Successful, uncomplicated ultrasound guided core biopsy of area of concern in the left breast, full pathology results to follow. [facility], , 03/28/2025 1:19 PM. Pathology Results: Result: Malignant. Pathology and radiology were reviewed. Findings are concordant. 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 See note. Overall Assessment: Malignant Assessment: MG diagnostic mammo LT wo CAD. - Left: Known biopsy proven malignancy, BI-RAD 6. Management: Surgical Consultation of the left breast. Electronically signed and approved by: Edward Roth DO
== END ==
LOC: RADUSWWP 12:07
PROVIDERS: ATTEND Surgery
DX: D05.12 Intraductal carcinoma in situ of left breast (principal); R92.8 Other abnormal and inconclusive findings on diagnostic imaging of breast; Z78.0 Asymptomatic menopausal state; Z80.3 Family history of malignant neoplasm of breast
CPT/HCPCS: 88305; 88342; 88341; 77065; 19083; A4648

== ENCOUNTER → 2025-04-08 | Outpatient (CLI) | payer BC ==
[2025-04-08 14:26] VITALS: BP 156/90; PULSE 70; RESP 16; TEMP 98.7
--- NOTE | 2025-04-08 14:53 | P.PN ---
Subjective Progress Note Date: 04/08/25 Principal diagnosis: Right breast atypical intraductal papilloma/left breast DCIS in papilloma atypical intraductal papilloma right breast/ left breast DCIS Requesting physician: Nhan Lane History of present illness: Wilma is a 64 year old female seen in consultation for Dr.Thomas Lane regarding a right breast biopsy of an atypical intraductal papilloma. She had a bilateral mammogram on 11-20-23 which led to a right breast ultrasound on 11-28-23. This led to a right breast ultrasound guided core biopsy on 12-22-23. No lesions of concern were noted in the left breast. The patient did not feel any lumps masses or nodules of concern in either breast. She tolerated the breast biopsy without difficulty. She was not complaining of any nipple discharge or skin changes. She had not had any recent trauma or infection in the breast. She has had right breast biopsies in the remote past which were benign. She is status post needle loc and excision of the area on 03-14-24; this was an atypical intraductal papilloma right breast mammogram on 09-17-24 BIRAD 2, personally interpreted She is not complaining of any new lumps masses or nodules of concern in either breast. She had a bilateral mammogram on 03-18-25; this showed a left breast focal asymetric mass measuring 9 mm. it was 2.3 cm from the nipple; an ultrasound was done on herve same date. It showed a 10 by 7 by 5 mm lesion. Biopsy of thie lesion was done on 03-28-25, low grade DCIS in an intraductal papilloma. ER+Pr+. No lesions of concern in the right breast. This was personally discussed with DR. Mccarthy. This was found on a routine mammogram. She had not felt anything of concern in the breast. She tolerated the biopsy without difficulty. Tania Risk 5 year risk: 5.1 LifeTime Risk: 17.2 Discussed chemoprophylaxis in the past and the patient declined. Caffeine: 2 cups/day Nicotine: Negative Chocolate: Occasional BCP: used for 5 years hormones: none Family History: mother: breast cancer father: cancer in neck Hormonal History: menarche: 11 , breast fed: yes, age at first : 30 menopause: 50 Surgical HIstory: 2 C sections right breast biopsy ovarian cyst removed Medical History: high cholesterol Social History: nicotine: none alcohol: none drugs: none Review of Systems - Constitutional Denies fever, Denies weight loss - EENT Eyes: denies blurred vision Ears: deny: decreased hearing, tinnitus Ears, nose, mouth and throat: Denies dysphagia - Breasts bilateral: as per HPI - Cardiovascular Denies chest pain, Denies shortness of breath - Respiratory Denies cough - Gastrointestinal Reports as per HPI - Genitourinary Genitourinary: Denies dysuria, Denies hematuria Menstruation: Reports postmenopausal - Musculoskeletal Reports as per HPI - Integumentary Denies rash, Denies unusual bruising - Neurological Denies headaches, Denies syncope - Psychiatric Reports as per HPI - Endocrine Reports as per HPI - Hematologic/Lymphatic Denies easy bleeding, Denies easy bruising - Allergic/Immunologic Reports as per HPI Past Medical History Past Medical History: Hyperlipidemia History of Any Multi-Drug Resistant Organisms: None Reported Past Surgical History: Section Additional Past Surgical History / Comment(s): X2, PREVIOUS BREAST BX Past Anesthesia/Blood Transfusion Reactions: No Reported Reaction - Sexual Orientation/Gender Identity What was your sex assigned at ?: Female Preferred Pronoun: She/Her/Hers Past Psychological History: No Psychological Hx Reported Smoking Status: Former smoker Past Alcohol Use History: None Reported Past Drug Use History: None Reported - Past Family History Mother Family Medical History: Cancer Additional Family Medical History / Comment(s): PT STATES MOTHER DUE TO BREAST CA Father Additional Family Medical History / Comment(s): PT STATES FATHER FROM HEART DISEASE Medications and Allergies Home Medications Medication Instructions Recorded Confirmed Type Atorvastatin [Lipitor] 10 mg PO DAILY 12/01/23 12/01/23 History Objective - Vital Signs Vital signs: Vital Signs Temp 98.7 F 04/08/25 14:23 Pulse 70 04/08/25 14:23 Resp 16 04/08/25 14:23 BP 156/90 04/08/25 14:23 Pulse Ox 100 04/08/25 14:23 FiO2 Intake & Output 04/07/25 04/08/25 04/08/25 18:59 06:59 18:59 Weight 56.699 kg - Constitutional General appearance: Present: cooperative - EENT Eyes: Present: EOMI ENT: Present: hearing grossly normal - Neck Neck: Present: normal ROM - Respiratory Respiratory: bilateral: CTA - Cardiovascular Rhythm: regular Heart sounds: normal: S1, S2 - Integumentary Integumentary: Present: normal turgor - Musculoskeletal Musculoskeletal: Present: gait normal - Psychiatric Psychiatric: Present: A&O x's 3, appropriate affect, intact judgment & insight - Additional findings Additional findings: Breast Exam: BRA: 34C Inspection: Bilateral grade 2 ptosis Palpation: Right breast: Multi positional exam fibrocystic changes no dominant masses or nodules of concern, well healed scar from biopsy Right axilla: No adenopathy of concern Left breast: Multi positional exam fibrocystic changes no dominant masses or nodules of concern; small hematoma at site of biopsy with some mild ecchymosis no evidence of infection Left axilla: No adenopathy of concern Assessment and Plan Assessment: Impression: Atypical intraductal papilloma right breast Fibrocystic breast changes mammogram bilateral and left breast ultrasound 03-18-2025, this led to an ultrasound-guided core biopsy of the left breast on 03 28 25 which was positive for DCIS and an intraductal papilloma Plan: DCIS and intraductal papilloma Presentation of case at tumor board Probable needle localization excisional lumpectomy possible oncoplastic tissue transfer CC: DR. Nhan Lane
== END ==
LOC: WWCWWP 14:13
PROVIDERS: ATTEND Surgery
DX: Z12.31 Encounter for screening mammogram for malignant neoplasm of breast (principal); D05.11 Intraductal carcinoma in situ of right breast; D05.12 Intraductal carcinoma in situ of left breast; N60.11 Diffuse cystic mastopathy of right breast; Z87.891 Personal history of nicotine dependence

== ENCOUNTER 2025-04-27 09:09 | Day surgery (SDC) | payer BC ==
[~2025-04-27 09:09] MED LIST changes: -LIDOCAINE 1% (10MG/ML) FOR IV START INTRADERMA PRN; +METHYLENE BLUE 50 MG, DEXTROSE 5% IN WATER 50 ML MISCELLANE ONE
[2025-04-27] MEDS: IV FLUID CONTINUATION 1,000 ML IV ONE (09:49)
[2025-04-27] MEDS: LACTATED RINGERS 1,000 ML IV SCH (09:50)
[2025-04-27] MEDS: ACETAMINOPHEN TAB 500 MG TAB PO PRN (09:53)
[2025-04-27] MEDS: HEPARIN SODIUM,PORCINE 5,000 UNIT/ML 1 ML VIAL SQ PRN (12:05)
[2025-04-27] MEDS: DEXAMETHASONE SOD PHOSPHATE 4 MG/ML 1 ML VIAL IV ONE (12:06)
[2025-04-27] MEDS: ONDANSETRON 4 MG/2 ML VIAL IVP ONE (12:06)
[2025-04-27] MEDS ORDERED: fentaNYL (PF) 50 MCG/ML 2 ML AMP ONE (12:07)
[2025-04-27] MEDS ORDERED: LIDOCAINE 1% INJ 10MG/ML (20 ML MDV) ONE (12:07)
[2025-04-27] MEDS ORDERED: MIDAZOLAM 2 MG/2 ML VIAL ONE (12:07)
[2025-04-27] MEDS ORDERED: PROPOFOL 10 MG/ML 20 ML VIAL IV ONE (12:07)
--- NOTE | 2025-04-27 12:18 | P.NAPBC ---
NAPBC Queries - NAPBC Queries Was patient's case review presented at [facility] tumor board? If no, comment.: Yes Was patient's pathology reviewed at [facility]? If no, comment.: Yes Was breast conservation surgery offered? If no, comment.: Yes Was sentinel node biopsy offered? If no, comment.: No Was diagnosis confirmed by percutaneous core biopsy? If no, comment.: Yes Is patient mastectomy patient?: No Was a preop referral to reconstructive surgeon offered?: No Clinical Stage: left breast DCIS stage 0
[2025-04-27] MEDS: LIDOCAINE 1% INJ 10MG/ML (20 ML MDV) SQ ONE ×2 (12:30)
--- NOTE | 2025-04-27 13:01 | P.BCAON ---
Date of Procedure: 04/27/25 Preoperative Diagnosis: Left breast DCIS Postoperative Diagnosis: Same Procedure(s) Performed: Left breast needle localization lumpectomy Anesthesia: JAZMIN Surgeon: Noemi Almonte Estimated Blood Loss (ml): 5 IV fluids (ml): 600 Pathology: other (Breast tissue) Condition: stable Disposition: same day Indications for Procedure: Left breast DCIS Operative Findings: Fibrofatty breast tissue Description of Procedure: The patient was seen first in the radiology department for needle localization of the area of concern was performed. Additionally methylene blue was injected at the site. The patient was then brought to the operative suite. Following induction of anesthesia the left breast was prepped and draped in a sterile fashion. Circumareolar incision was made and carried down to the shaft of the needle. Surrounding tissue was excised. The specimen was removed and painted for orientation. Radiograph of the specimen revealed the area of concern had been resected. Anterior dissection was immediately under the skin. The wound was well irrigated. Titanium clips were placed. Surgicel and powder form was placed. The deep tissues were closed using 3-0 Vicryl suture. The skin was closed using 4-0 Monocryl. 10 cc of 1% lidocaine were injected into the area of the incision. Surgical glue was placed. The patient tolerated the procedure in stable condition. All instrument and sponge counts were correct at the end of the case.
[2025-04-27 13:29] VITALS: TEMP 97
[2025-04-27 13:34] VITALS: RESP 16
[2025-04-27 14:26] VITALS: BP 150/77; PULSE 61
--- NOTE | 2025-05-05 10:36 | MM ---
Reason for Exam: Post Procedure Mammogram. Last screening mammogram was performed 2 month(s) ago. Patient History: Menarche at age 11. First Full-Term at age 30. Late child-bearing (after 28). Postmenopausal. Breast cancer, left, age 64. Previous Hyperplasia w/o Atypia at age 63. 03/28/2025, Malignant US biopsy breast VAD LT on the left side. 03/16/2024, Lumpectomy on the Right side. 03/16/2024, Benign US breast localization RT on the right side. 12/22/2023, High risk US biopsy breast VAD RT on the right side. Benign Excisional Biopsy on the right side. Benign Excisional Biopsy on the right side. Maternal grandmother had breast cancer. Mother had breast cancer, age 55. Prior Study Comparison: 09/17/2024 Right MG 3D diag mammo w/cad RT, [facility]. 03/18/2025 Bilateral MG 3D diag mammo w/cad [facility], [facility]. 03/28/2025 Left MG diagnostic mammo LT wo CAD., [facility]. Tissue Density: Left: The breasts are heterogeneously dense, which may obscure small masses. Pathology Description: Location: 3 o'clock. Needle Type: 5 cm [place] Pathology Results: Result: Malignant. Pathology and radiology were reviewed. Findings are concordant. 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 All margins negative for DCIS. Overall Assessment: Malignant Assessment: MG diagnostic mammo LT wo CAD. - Left: Known biopsy proven malignancy, BI-RAD 6. Management: Diagnostic Mammogram of the left breast in 6 months. Diagnostic Breast Ultrasound of the left breast in 6 months. Electronically signed and approved by: Wesley Hernandez M.D. Radiologist
== END 2025-04-27 14:43 | disposition home or self-care (01) ==
LOC: OR 09:09
PROVIDERS: ATTEND Surgery
DX: D05.12 Intraductal carcinoma in situ of left breast (principal); Z78.0 Asymptomatic menopausal state; Z80.3 Family history of malignant neoplasm of breast
CPT/HCPCS: 88307; 77065; 76098; 19285; 19301; C1819; J2250; J1644; J1100; J2405; J0690; J2003; J3010; J2704

== ENCOUNTER → 2025-05-05 | Outpatient (CLI) | payer BC ==
[2025-05-05 11:15] VITALS: BP 161/81; PULSE 86; RESP 16; TEMP 97.8
--- NOTE | 2025-05-05 11:30 | P.BCPO ---
Progress Note - Text Progress Note Date: 05/05/25 Wilma is status post a needle localization lumpectomy of the left breast on 04-27-25. This revealed a low grade DCIS involving an intraductal papilloma. All margins (-). Closest margin 5 mm to anterior margin. ER+Pr+G1. Size 12 mm. Physical examination: Lungs: Clear Heart: Regular rate and rhythm Incision: Clean and dry Impression: Patient doing well postoperative Plan: Follow-up medical oncology Follow-up radiation oncology Follow-up here in 4 months Post Op Education - Post Op Education Post Op Education Provided Date: 05/05/25 - Functional Assessment Performed?: Yes (arm abduction passed) Path Report - Was patient given path report? Path Report Date Given: 05/05/25
== END ==
LOC: WWCWWP 11:05
PROVIDERS: ATTEND Surgery
DX: Z48.89 Encounter for other specified surgical aftercare (principal); D05.10 Intraductal carcinoma in situ of unspecified breast; Z98.890 Other specified postprocedural states